=== PATIENT | male | born 1965 | race Caucasian/White ===

== ENCOUNTER 2021-11-15 20:22 | Inpatient (IN) | payer OTHER, MEDICAID, SELFPAY ==
[~2021-11-15] VITALS: Ht 175.3 cm; Wt 76.7 kg
--- NOTE | 2021-11-15 20:34 | NUR ---
PT HELD IN AMBULANCE.
[2021-11-15 20:35] VITALS: BP 139/79
--- NOTE | 2021-11-15 21:28 | NUR ---
PT TAKEN TO BED #13
--- NOTE | 2021-11-15 21:47 | NUR ---
56 Y/O MALE BIBA FROM [facility] [place] ([facility]). C/O COUGH AND FEVER. PATIENT PRESENTS TO ED WITH MILD AGITATION AND MILD FEVER. PER EMS, FACILITY STATES WHILE TAKING VITALS AT FACILITY THEY NOTIVCED THAT THE PT HAD A COUGH AND FEVER OF 100.4F. FACILITY N/V/D; SKIN IS PINK/WARM/DRY; AAOXO (WHICH IS NORMAL FOR PT DUE TO COGNITIVE IMPAIREMENT); PT IS NON AMBULATORY; LUNGS CLEAR BL; HR EVEN AND REGULAR; VSS; PATIENT POSITIONED FOR COMFORT; HOB ELEVATED; BEDRAILS UP X2 AND SEIZURE PADS PLACED; BED DOWN. ER MD MADE AWARE OF PT STATUS. hX: DYSPHAFGIA, G-TUBE, GERD, CEREBRAL PALSY, PROFOUND ID, EPILEPSY, UTI, PARKINSONS, DVT, DEMENTIA, SCHIZOPHRENIA NKA
--- NOTE | 2021-11-15 21:47 | NUR ---
PER EMS, [facility] TESTED PT FOR COVID11/12/21 AND RESULTS WERE NEGATIVE
--- NOTE | 2021-11-15 22:35 | NUR ---
LABS AT BEDSIDE
--- NOTE | 2021-11-15 22:38 | NUR ---
PT TAKEN TO XRAY
--- NOTE | 2021-11-15 22:39 | NUR ---
Tory ellis in [facility], [place] - 11/15/21 at 2247 by [email or web address] LABS AT BEDSIDE
--- NOTE | 2021-11-15 22:46 | NUR ---
PT RETURNED FROM XRAY
--- NOTE | 2021-11-15 23:00 | NUR ---
BELKIS/ROBERT COLLECTED AND WALKED TO LAB.
--- NOTE | 2021-11-15 23:36 | NUR ---
SPOKE WITH DR BULLOCK CONCERNING PT ADMIT ORDERS.
[2021-11-15 23:40] LABS: BASOPHILS % (AUTO) 0.2 % (0.0-2.0); EOSINOPHILS % (AUTO) 0.2 % (0.0-4.0); HEMATOCRIT 38.8 % (36-52); LYMPHOCYTES % (AUTO) 20.9 % (20.5-51.1); MEAN CORPUSCULAR HEMOGLOBIN 31 pg (27-31); MEAN CORPUSCULAR HGB CONC 33 g/dL (33-37); MEAN CORPUSCULAR VOLUME 91.1 fL (80-94); MONOCYTES # (AUTO) 1.3 K/uL (0.8-1.0); MONOCYTES % (AUTO) 9.2 % (1.7-9.3); NEUTROPHILS # (AUTO) 10.1 K/uL (1.8-7.7); NEUTROPHILS % (AUTO) 69.5 % (42.2-75.2); PLATELET COUNT (AUTO) 380 K/uL (140-450); RED BLOOD CELL COUNT(AUTO) 4.26 MIL/uL (4.20-6.10); RED CELL DISTRIBUTION WIDTH 15.4 % (11.6-13.7); WHITE BLOOD COUNT (AUTO) 14.5 K/uL (4.8-10.8)
[2021-11-16] LABS: ALBUMIN 2.6 g/dL (3.4-5.0); ANION GAP 14.5 (8-16); CARBON DIOXIDE 28.1 mmol/L (21-32); CREATININE 0.5 mg/dL (0.6-1.3); POTASSIUM 4.6 mmol/L (3.5-5.1); TOTAL BILIRUBIN 0.2 mg/dL (0.0-1.0)
--- NOTE | 2021-11-16 00:01 | NUR ---
SEIZURE PRECAUTIONS INITIATED
[2021-11-16] MEDS ORDERED: LACTATED RINGERS 1,000 ML IV ONE (00:35)
[2021-11-16] MEDS ORDERED: VANCOMYCIN 1,000 MG in DEXTROSE 5% 250 ML IV ONE (00:35)
[2021-11-16] MEDS ORDERED: CEFEPIME 1,000 MG in DEXTROSE 5% 50 ML IV ONE (00:35)
[2021-11-16] MEDS ORDERED: DEXT 5% / NACL 0.45% 1,000 ML IV ONE (00:40)
[2021-11-16] MEDS ORDERED: CEFEPIME 1,000 MG VIAL ONE ×2 (01:33→22:04)
[2021-11-16] MEDS ORDERED: VANCOMYCIN 1,000 MG VIAL ONE ×3 (02:19→23:20)
[2021-11-16] MEDS ORDERED: POLY17PD72 GT (03:29)
[2021-11-16] MEDS ORDERED: MULT-2112 PO (03:29)
[2021-11-16] MEDS ORDERED: LISI-486 GT (03:29)
[2021-11-16] MEDS ORDERED: OMEP20EC11 GT (03:29)
[2021-11-16] MEDS ORDERED: OXCA300T GT (03:29)
[2021-11-16] MEDS ORDERED: ONDA4TAB GT (03:29)
[2021-11-16] MEDS ORDERED: APIX5TAB GT (03:29)
[2021-11-16] MEDS ORDERED: KETO120S5 TP (03:29)
[2021-11-16] MEDS ORDERED: ASCO500T95 GT (03:29)
--- NOTE | 2021-11-16 03:50 | NUR ---
# 15 FR Urinary catheter inserted utilizing sterile technique. Immediate return of 80 ml CLOUDY YELLOW urine noted. Urine sample collected and sent to lab. Pt tolerated procedure WELL.
[2021-11-16 04:05] LABS: BILIRUBIN,URINE NEGATIVE (NEGATIVE); BLOOD, URINE 3+ (NEGATIVE); COLOR,URINE YELLOW (YELLOW); LEUKOCYTE ESTERASE ,URINE 2+ (NEGATIVE); NITRITE, URINE NEGATIVE (NEGATIVE); UGLUCOSE NEGATIVE (NEGATIVE)
[2021-11-16 04:17] LABS: APPEARANCE,URINE HAZY (CLEAR)
[2021-11-16 04:19] LABS: RBC,URINE >100 /HPF (0-5); WBC,URINE 20-60 /HPF (0-5)
--- NOTE | 2021-11-16 04:56 | NUR ---
TALKED TO DR STELLA BULLOCK ABOUT HIS SUSPENSION AND HE SAID THAT HE SHOULD NOT BE SUSPENDED BUT TO TRANSFER ADMISSION ORDERS TO AMADA BULLOCK IN THE MEANTIME IF IT COULD NOT BE SORTED OUT.
--- NOTE | 2021-11-16 06:57 | NUR ---
PATIENT HAS BEEN SCREENED AND CATEGORIZED HIGH NUTRITION RISK. PATIENT WILL BE SEEN WITHIN 1-2 DAYS OF ADMISSION. 11/17/21-11/18/21 ANNA TRACEY MS, RDN
--- NOTE | 2021-11-16 07:32 | NUR ---
REPORT RECEIVED FROM JOHNNY MICHAELS FOR CONTINUITY OF CARE. A&OX0. ON 3L NASAL CANNUAL. GTUBE NOTED. SEIZURE PRECAUTIONS IN PLACE. IV SITE LT FOOT 22G, INFUSING D5% 0.45% AT 100ML/HR. SKIN WARM AND DRY, INTACT. SAFETY PRECAUTIONS IN PLACE. WILL CONTINUE TO MONITOR.
--- NOTE | 2021-11-16 07:32 | NUR ---
REPORT GIVEN TO NATALIO MICHAELS.
--- NOTE | 2021-11-16 08:00 | NUR ---
novel swabbed at this time
[2021-11-16] MEDS ORDERED: ALBUTEROL 0.083% 2.5 MG/3 ML NEBU INH PRN (08:20)
[2021-11-16] MEDS ORDERED: DEXT 5% / NACL 0.45% 1,000 ML IV SCH (08:20)
[2021-11-16] MEDS ORDERED: ACETAMINOPHEN 325 MG TAB GT PRN (08:20)
[2021-11-16] MEDS ORDERED: LORazepam 2 MG/ML VIAL IVP PRN (08:20)
[2021-11-16] MEDS ORDERED: ONDANSETRON 4 MG/2 ML VIAL IVP PRN (08:20)
[2021-11-16] MEDS ORDERED: PANTOPRAZOLE 40 MG TABEC PO SCH (09:00)
[2021-11-16] MEDS: OXcarbazepine 150 MG TAB GT SCH ×2 (09:49→23:04)
[2021-11-16] MEDS: ASCORBIC ACID 500 MG TAB GT SCH (09:50)
[2021-11-16] MEDS: lisinopriL 10 MG TAB GT SCH (09:50)
[2021-11-16] MEDS: APIXABAN 2.5 MG TAB GT SCH ×2 (09:51→23:00)
[2021-11-16] MEDS: MULTIVITAMIN 1 TAB PO SCH (09:52)
[2021-11-16] MEDS ORDERED: CRUSHER, PILL MC ONE ×2 (09:54→22:18)
[2021-11-16] MEDS ORDERED: VANCOMYCIN PER PHARMACY MC PRN (10:55)
--- NOTE | 2021-11-16 10:59 | NUR ---
RECEIVED CALL FROM ROHAN MANCERA, PT'S SENIOR BUSINESS OBJECTS DEVELOPER. UPDATED ON PT STATUS. ALL CONCERNS ANSWERED AT THIS TIME.
[2021-11-16] MEDS: VANCOMYCIN 1,000 MG in DEXTROSE 5% 250 ML IV SCH ×2 (11:27→23:25)
--- NOTE | 2021-11-16 12:15 | NUR ---
PT ON 3 L NASAL CANNULA. O2 SATURATION 97%. RESPIRATIONS EVEN AND UNLABORED. CHEST RISE IS SYMMETRICAL. WILL CONTINUE TO MONITOR.
--- NOTE | 2021-11-16 20:21 | NUR ---
Spoke with MD Fair about patient status. MD at bedside for further examination of patient.
--- NOTE | 2021-11-16 21:42 | NUR ---
patient placed on 6L NC patient slightly agitated and pale. patient going up to 88%. will continue to monitor patient
--- NOTE | 2021-11-16 21:51 | NUR ---
called RT as patient desaturation at 55%, patient turning pale and slightly cyanotic. Addendum: 11/16/21 at 2152 by [email or web address] RT at bedside for evaluation
[2021-11-16] MEDS: CEFEPIME 1,000 MG in DEXTROSE 5% 50 ML IV SCH (22:08)
--- NOTE | 2021-11-16 22:40 | NUR ---
RT at bedside, patient desaturating down to low 70s and patient turning pale and cyanotic
[2021-11-16] MEDS: HYDROcodone/APAP 5/325 MG 1 TAB TAB GT PRN (22:56)
--- NOTE | 2021-11-17 00:30 | NUR ---
changed gtube dressing and changed patient to NC 5L tolerating well.
--- NOTE | 2021-11-17 01:00 | NUR ---
provided patient pericare, changed sheets, and provided agustin pads. Boosted and repositioned to the right side. patient tolerated well. Addendum: 11/17/21 at 0101 by [email or web address] patient had BM, soft, medium amount.
[2021-11-17] MEDS ORDERED: VANCOMYCIN 1,000 MG VIAL ONE (04:58)
[2021-11-17] MEDS: VANCOMYCIN 1,000 MG in DEXTROSE 5% 250 ML IV SCH ×3 (05:15→21:30)
[2021-11-17] MEDS: HYDROcodone/APAP 5/325 MG 1 TAB TAB GT PRN (05:19)
--- NOTE | 2021-11-17 05:43 | NUR ---
provided patient pericare, changed sheets, and provided agustin pads. Boosted and repositioned to the left side. patient had a small soft BM- yellow in color. patient tolerated well.
--- NOTE | 2021-11-17 05:44 | NUR ---
noted some redness on the buttocks and hips. no open wounds noted.
--- NOTE | 2021-11-17 07:30 | NUR ---
Pt report given to Colton MICHAELS. Transfer of care at this time.
--- NOTE | 2021-11-17 07:30 | NUR ---
REPORT RECEIVED FROM TANIA RN FOR CONTINUITY OF CARE. PT IS A&OX0. IV SITE LT FOOT 22G, INTACT, PATENT, GOOD BLOOD RETURN. GTUBE NOTED. SKIN INTACT, WARM AND DRY. SAFETY PRECAUTIONS IN PLACE. WILL CONTINUE TO MONITOR.
[2021-11-17] MEDS: LANSOPRAZOLE 30 MG CAPDR GT SCH (07:40)
--- NOTE | 2021-11-17 08:34 | NUR ---
Patient will be admitted to care of DR BULLOCK. Admited to TELEMETRY. Will go to room 113 B. Belongings list completed. Report to TREVIN MICHAELS.
[2021-11-17 09:00] VITALS: BP 124/60
[2021-11-17] MEDS: lisinopriL 10 MG TAB GT SCH (09:00)
[2021-11-17] MEDS: APIXABAN 2.5 MG TAB GT SCH ×2 (09:00→21:00)
[2021-11-17] MEDS: ASCORBIC ACID 500 MG TAB GT SCH (09:00)
[2021-11-17] MEDS: MULTIVITAMIN 1 TAB PO SCH (09:00)
[2021-11-17] MEDS: OXcarbazepine 150 MG TAB GT SCH ×2 (09:00→21:00)
[2021-11-17] MEDS: POLYETHYLENE GLYCOL 17 GM/PKT GT SCH (09:00)
[2021-11-17] MEDS: CEFEPIME 1,000 MG in DEXTROSE 5% 50 ML IV SCH ×2 (09:00→21:00)
--- NOTE | 2021-11-17 09:00 | NUR ---
RECEIVED PT FROM ED. PT IS STABLE. ST HEART RATE. NO RECENTLABS. AWAITING LAB DRAW.
[2021-11-17 11:58] LABS: BASOPHILS % (AUTO) 0.2 % (0.0-2.0); HEMATOCRIT 36.9 % (36-52); LYMPHOCYTES # (AUTO) 2.5 K/uL (2.0-11.5); LYMPHOCYTES % (AUTO) 21.4 % (20.5-51.1); MEAN CORPUSCULAR HEMOGLOBIN 30 pg (27-31); MEAN CORPUSCULAR HGB CONC 33 g/dL (33-37); MEAN CORPUSCULAR VOLUME 92.4 fL (80-94); MONOCYTES # (AUTO) 0.9 K/uL (0.8-1.0); MONOCYTES % (AUTO) 7.6 % (1.7-9.3); NEUTROPHILS # (AUTO) 8.2 K/uL (1.8-7.7); NEUTROPHILS % (AUTO) 70.8 % (42.2-75.2); PLATELET COUNT (AUTO) 361 K/uL (140-450); RED BLOOD CELL COUNT(AUTO) 3.99 MIL/uL (4.20-6.10); RED CELL DISTRIBUTION WIDTH 15.7 % (11.6-13.7); WHITE BLOOD COUNT (AUTO) 11.6 K/uL (4.8-10.8)
[2021-11-17 12:00] VITALS: BP 120/53
--- NOTE | 2021-11-17 12:00 | NUR ---
NO REACTION TO CEFEPIME AND VANCO. STARTED JEVITY AT 10CC TO 40CC EVENTUALLY. H20 200CC EVERY 4HOURS. PT IS STABLE.
[2021-11-17 12:11] LABS: ANION GAP 15.4 (8-16); CREATININE 1.3 mg/dL (0.6-1.3); POTASSIUM 4.4 mmol/L (3.5-5.1)
[2021-11-17 16:00] VITALS: BP 124/59
--- NOTE | 2021-11-17 16:00 | NUR ---
PT IS BREATHING EVEN AND UNLABORED. PT IS ON 3L NC AND SATING AROUND 95%. PT IV IS PATENT AND INTACT. PT IS STABLE.
--- NOTE | 2021-11-17 19:30 | NUR ---
ENDORSED PT TO AUDIO PRODUCTION INSTRUCTOR NURSE FOR CONTINUITY OF CARE.
--- NOTE | 2021-11-17 19:32 | NUR ---
RECEIVED REPORT FROM DAY SHIFT NURSE FOR CONTINUITY OF CARE.
--- NOTE | 2021-11-17 21:00 | NUR ---
HS MEDS GIVEN . TOLERATED WELL. IV R FOOT 22G PATENT. INFUSING IV ABXS. G-TUBE FEEDING JEVITY 1.2 @40CC/HR WITH 200CC [id number] Q 4HRS. SACRAL REDNESS. TURNED AND REPOSITIONED Q 2 HRS. ALL SAFETY MEASURES IN PLACE. CONTINUE TO OBSERVE.
--- NOTE | 2021-11-17 21:44 | NUR ---
PT PRESENTS LAYING IN BED WITH NO SIGNS OF RESPIRATORY DISTRESS SATING 96% ON 3 LPM NC. WILL CONTINUE TO MONITOR.
[2021-11-18] MEDS: VANCOMYCIN 1,000 MG in DEXTROSE 5% 250 ML IV SCH ×3 (03:31→22:01)
[2021-11-18] MEDS: LANSOPRAZOLE 30 MG CAPDR GT SCH (06:04)
[2021-11-18 07:00] VITALS: BP 124/60
[2021-11-18 07:59] LABS: BASOPHILS % (AUTO) 0.2 % (0.0-2.0); EOSINOPHILS # (AUTO) 0.1 K/uL (0-0.4); EOSINOPHILS % (AUTO) 0.8 % (0.0-4.0); HEMATOCRIT 35.7 % (36-52); HEMOGLOBIN 11.8 g/dL (12.0-18.0); LYMPHOCYTES % (AUTO) 14.4 % (20.5-51.1); MEAN CORPUSCULAR HEMOGLOBIN 30 pg (27-31); MEAN CORPUSCULAR HGB CONC 33 g/dL (33-37); MEAN CORPUSCULAR VOLUME 91.2 fL (80-94); MONOCYTES # (AUTO) 0.7 K/uL (0.8-1.0); MONOCYTES % (AUTO) 5.4 % (1.7-9.3); NEUTROPHILS # (AUTO) 10.8 K/uL (1.8-7.7); NEUTROPHILS % (AUTO) 79.2 % (42.2-75.2); PLATELET COUNT (AUTO) 305 K/uL (140-450); RED BLOOD CELL COUNT(AUTO) 3.92 MIL/uL (4.20-6.10); RED CELL DISTRIBUTION WIDTH 15.7 % (11.6-13.7)
[2021-11-18 08:00] LABS: WHITE BLOOD COUNT (AUTO) 13.7 K/uL (4.8-10.8)
[2021-11-18 08:05] LABS: ALBUMIN 2.1 g/dL (3.4-5.0); ANION GAP 11.4 (8-16); CARBON DIOXIDE 29.3 mmol/L (21-32); CREATININE 0.7 mg/dL (0.6-1.3); POTASSIUM 3.7 mmol/L (3.5-5.1); TOTAL BILIRUBIN 0.2 mg/dL (0.0-1.0)
[2021-11-18] MEDS: POLYETHYLENE GLYCOL 17 GM/PKT GT SCH (08:31)
[2021-11-18] MEDS: MULTIVITAMIN 1 TAB PO SCH (08:32)
[2021-11-18] MEDS: lisinopriL 10 MG TAB GT SCH (08:32)
[2021-11-18] MEDS: ASCORBIC ACID 500 MG TAB GT SCH (08:32)
[2021-11-18] MEDS: OXcarbazepine 150 MG TAB GT SCH ×2 (08:33→22:02)
[2021-11-18] MEDS: CEFEPIME 1,000 MG in DEXTROSE 5% 50 ML IV SCH ×2 (08:33→22:04)
[2021-11-18] MEDS: APIXABAN 2.5 MG TAB GT SCH ×2 (08:35→22:03)
--- NOTE | 2021-11-18 09:50 | NUR ---
RECEIVED REPORT FROM ROHAN MICHAELS. PT STABLE
--- NOTE | 2021-11-18 10:22 | NUR ---
PT. WITH LOW ASCENCION SCALE AT HIGH RISK, ADMITTED WITH SACRALCOCCYX BLANCHABLE REDNESS, 3X2 CM SKIN INTACT. CONTINUE TO FOLLOW PRESSURE INJURY PREVENTION INTERVENTIONS. -APPLY HYDRAGUARD TO SACRALCOCCYX BID AND PRN IF SOILING. -TURN AND REPOSITION PATIENT Q 2H -ASSESS AND MONITOR SKIN CONDITION DURING POSITION CHANGE -OFFLOAD BILATERAL HEELS BY PLACING PILLOWS UNDER CALVES AT ALL TIMES, UNLESS OTHERWISE CONTRAINDICATED -PRESSURE REDISTRIBUTION SURFACE AND OFFLOADING SACRALCOCCYX -KEEP SKIN CLEAN AND DRY AT ALL TIMES. PLEASE NOTIFIED WOUND CARE NURSE FOR ANY CHANGE OF SKIN CONDITION
[2021-11-18 12:00] VITALS: BP 92/55
[2021-11-18] MEDS ORDERED: NACL 0.9% 500 ML IV SCH (12:40)
[2021-11-18] MEDS ORDERED: POTASSIUM CHLORIDE 20% 40 MEQ/15 ML UDC GT SCH (13:00)
[2021-11-18] MEDS: HYDRAGUARD CREAM TP SCH (13:19)
--- NOTE | 2021-11-18 13:45 | NUR ---
PT RESTING IN BED. NO S/S OF DISTRESS. BREATHING SYMMETRICAL. CALL LIGHT IN REACH. ALL SAFETY MEASURES IN PLACE
[2021-11-18 16:00] VITALS: BP 91/60
--- NOTE | 2021-11-18 17:06 | NUR ---
11/18/21 RD INITIAL ASSESSMENT COMPLETED PLEASE REFER TO NUTRITION ASSESSMENT UNDER CARE ACTIVITY FOR ESTIMATED NUTRITIONAL NEEDS. 1. RECOMMEND VITAL AF 1.2 WITH A GOAL RATE OF 60 ML/HR -WATER FLUSH: 200 ML Q4H -START AT 10 ML/HR AND INCREASE BY 10 ML Q4H TOLERATED -WILL PROVIDE 1728 KCAL AND 108 GM PROTEIN, MEETING 80% KCAL AND 100% PROTEIN NEEDS 2. RD TO FOLLOW-UP 2-3 DAYS, HIGH RISK ROJAS MCCORMICK RD
--- NOTE | 2021-11-18 17:26 | NUR ---
PT TUBE FEEDING WAS CHANGED. DIETARY TO BRING FEEDING, WILL SHOW CLAY PRESS OPERATOR NURSE HOW TO TITRATE FEEDING SET BY GRAVITY. ALL SAFETY MEASURES IN PLACE. HOB KEPT ELEVATED AT ALL TIMES.
--- NOTE | 2021-11-18 19:30 | NUR ---
RECEIVED BEDSIDE REPORT FROM DAY SHIFT RN . PT IS SLEEPING IN BED. NC 3L. PT IS NOT IN ANY DISTRESS. BED AT THE LOWEST POSITION. HEAD OF BED RAISED. WILL CONTINUE TO MONITOR THE PT.
[2021-11-18 20:00] VITALS: BP 87/57
[2021-11-19] VITALS: BP 95/54
[2021-11-19] MEDS: HYDRAGUARD CREAM TP SCH ×2 (01:32→13:26)
--- NOTE | 2021-11-19 02:50 | NUR ---
PT IS SLEEPING IN BED. PT IS NOT IN ANY DISTRESS. BREATHING RHYTHMIC AND SYMMETRICAL. FEEDING RUNNING MD ORDER. BED AT THE LOWEST POSITION. ALL SAFETY MEASURES TAKEN. WILL CONTINUE TO MONITOR THE PT.
[2021-11-19 04:00] VITALS: BP 136/82
[2021-11-19] MEDS: VANCOMYCIN 1,000 MG in DEXTROSE 5% 250 ML IV SCH (04:03)
[2021-11-19] MEDS: LANSOPRAZOLE 30 MG CAPDR GT SCH (05:55)
--- NOTE | 2021-11-19 07:20 | NUR ---
ENDORSED PT TO DAY SHIFT RN FOR CONTINUITY OF CARE. PT IS STABLE.
--- NOTE | 2021-11-19 07:30 | NUR ---
RECEIVED BEDSIDE REPORT FROM DAY RN BONE MARROW TRANSPLANT RN . PT IS SLEEPING IN BED. NC 3L. PT IS NOT IN ANY DISTRESS. GT IN PLACE WITH FEEDING, TOLERATED WELL, R FOOT 22G@ KVO. BED AT THE LOWEST POSITION. HEAD OF BED RAISED. WILL CONTINUE TO MONITOR THE PT. INITIAL ASSESSMENT DONE, ALL SAFETY PRECAUTION MET, CALL LIGHT WITHIN REACH.
[2021-11-19 07:37] LABS: BASOPHILS % (AUTO) 0.2 % (0.0-2.0); EOSINOPHILS # (AUTO) 0.1 K/uL (0-0.4); EOSINOPHILS % (AUTO) 0.6 % (0.0-4.0); HEMATOCRIT 36.2 % (36-52); HEMOGLOBIN 11.8 g/dL (12.0-18.0); LYMPHOCYTES # (AUTO) 1.5 K/uL (2.0-11.5); LYMPHOCYTES % (AUTO) 9.1 % (20.5-51.1); MEAN CORPUSCULAR HEMOGLOBIN 30 pg (27-31); MEAN CORPUSCULAR HGB CONC 33 g/dL (33-37); MEAN CORPUSCULAR VOLUME 91.6 fL (80-94); MONOCYTES # (AUTO) 0.9 K/uL (0.8-1.0); MONOCYTES % (AUTO) 5.1 % (1.7-9.3); NEUTROPHILS # (AUTO) 14.5 K/uL (1.8-7.7); PLATELET COUNT (AUTO) 316 K/uL (140-450); RED BLOOD CELL COUNT(AUTO) 3.95 MIL/uL (4.20-6.10); RED CELL DISTRIBUTION WIDTH 15.2 % (11.6-13.7); WHITE BLOOD COUNT (AUTO) 17.1 K/uL (4.8-10.8)
[2021-11-19 08:00] VITALS: BP 111/66
[2021-11-19] MEDS: APIXABAN 2.5 MG TAB GT SCH ×2 (10:00→21:36)
[2021-11-19] MEDS: POLYETHYLENE GLYCOL 17 GM/PKT GT SCH (10:00)
[2021-11-19] MEDS: LINEZOLID 600MG PREMIX 300 ML IV SCH ×2 (10:00→21:34)
[2021-11-19] MEDS: lisinopriL 10 MG TAB GT SCH (10:01)
[2021-11-19] MEDS: OXcarbazepine 150 MG TAB GT SCH ×2 (10:01→21:35)
[2021-11-19] MEDS: MULTIVITAMIN 1 TAB PO SCH (10:01)
[2021-11-19] MEDS: ASCORBIC ACID 500 MG TAB GT SCH (10:01)
[2021-11-19] MEDS: CEFEPIME 1,000 MG in DEXTROSE 5% 50 ML IV SCH ×2 (10:03→21:34)
--- NOTE | 2021-11-19 11:06 | NUR ---
PT POSITIVE FOR MRSA NARES, BACTROBAN PER PROTOCOL ORDERED
[2021-11-19 11:29] LABS: ANION GAP 9.5 (8-16); CARBON DIOXIDE 29.7 mmol/L (21-32); CREATININE 0.5 mg/dL (0.6-1.3); POTASSIUM 4.2 mmol/L (3.5-5.1)
[2021-11-19 12:00] VITALS: BP 131/52
--- NOTE | 2021-11-19 12:50 | NUR ---
DC PLANNING: ALE SPOKE WITH GENESIS MANCERA, TECHNICAL AID FOR [facility]. THE PATIENT HAS BEEN AT THEIR FACILITY FOR A WEEK AN EMERGENCY PLACEMENT. HE WAS PREVIOUSLY AMBULATORY, NOW WC BOUND BUT P.T. IS WORKING WITH HIM AT THE [facility]. HE IS VERBAL, AND HAS A PEG. CM ENDORSED THAT THE PATIENT HAS POSITIVE URINE CULTURES OF VRE AND IS ON IV ABX AND MAY NEED SNF PLACEMENT FOR CONTINUATION. PATIENT IS ON O2 2L NC, CM WILL FOLLOW FOR NEEDS. Addendum: 11/21/21 at 0905 by Delfina Pereira CM DC PLANNING: ORDER RECEIVED FOR SNF PLACEMENT FOR IV ABX AND O2. ALE SPOKE WITH GENESIS MANCERA, TECHNICAL AID FOR [facility], PATIENT IS [facility] MANAGED BUT THERE IS NO PREFERENCE FOR SNF. CM WILL FAX TO LOCAL FACILITIES AND WILL FOLLOW FOR NEEDS. Addendum: 11/21/21 at 1427 by Delfina Pereira CM DC PLANNING: SNF REFERRAL FAXED TO [facility], [facility] AND [facility]. CM WILL FOLLOW. Addendum: 11/22/21 at 1548 by Delfina Pereira CM DC PLANNING: NO SNF ACCEPTANCE, [facility] CM WILL FOLLOW. Addendum: 11/22/21 at 1645 by Delfina Pereira CM DC PLANNING: [facility] UNABLE TO ACCEPT. CM WILL FOLLOW. Addendum: 11/25/21 at 1755 by Rufina Barrios CM DC Planning: Oxygen order faxed to [facility] ([phone] F.[phone]). Addendum: 11/27/21 at 1250 by Delfina Pereira CM DC PLANNING: SPOKE WITH DR BULLOCK, PATIENT TO BE REFERRED TO [facility] BECAUSE OF RISING WBC'S AND POTENTIAL NEED FOR IV ABX. PATIENT IS [place] AND CANNOT DC THERE ON ABX. REFERRAL FAXED TO [facility], CM WILL FOLLOW. Addendum: 11/28/21 at 1408 by Delfina Pereira CM DC PLANNING: PATIENT ACCEPTED TO [facility], ROOM 19B UNDER DR BULLOCK/ [place] TO SET UP TRANSPORT WITH [facility], F/U CALL TO ASK WHAT TIME TRANSPORT HAS BEEN ARRANGED, CM WILL FOLLOW FOR DC. Addendum: 11/28/21 at 1554 by Delfina Pereira DC PLANNING: TRANSPORT ARRANGED WITH [facility] FOR 1800, PHONE FOR [facility] IS [phone], WILL NEED TO F/U IF THEY DON'T COME AT 1800. NUMBER TO CALL REPORT IS [phone]. PATIENTS NURSE FARHANA DO, CM WILL FOLLOW.
[2021-11-19] MEDS: MUPIROCIN CA NASAL 2% 1GM TUBE NS SCH (13:26)
[2021-11-19] MEDS: CHLORHEXADINE GLUC 2% CLOTH TP SCH (13:26)
[2021-11-19 16:00] VITALS: BP 148/89
--- NOTE | 2021-11-19 17:26 | NUR ---
DR BULLOCK AT BEDSIDE PER DR CASILLAS TO DOWNGRADE TO MS.
--- NOTE | 2021-11-19 19:30 | NUR ---
ENDORSED PT TO REAL ESTATE LOAN OFFICER NURSE FOR CONTINUOUS OF CARE.
--- NOTE | 2021-11-19 19:45 | NUR ---
RECEIVED PT FROM DAY SHIFT RN FOR CONTINUITY OF CARE. PT IS SLEEPING IN BED COMFORTABLY. PT IS ON NC 3L. RIGHT FOOT 22 GAUGE. FEEDING RUNNING MD ORDER. PT IS NOT IN ANY DISTRESS. BED AT THE LOWEST POSITION. ALL SAFETY MEASURES TAKEN. WILL CONTINUE TO MONITOR THE PT.
[2021-11-19 20:00] VITALS: BP 111/51
--- NOTE | 2021-11-19 21:45 | NUR ---
ALL DUE MEDS GIVEN. NO ADVERSE REACTION NOTED. WILL CONTINUE TO OBSERVE PT.
--- NOTE | 2021-11-20 00:53 | NUR ---
PT IS AWAKE LAYING IN BED COMFORTABLY. PT IS NOT IN ANY DISTRESS. BREATHING RHYTHMIC AND SYMMETRICAL. BED AT THE LOWEST POSITION. HEAD OF BED RAISED. WILL CONTINUE TO MONITOR THE PT.
[2021-11-20] MEDS: HYDRAGUARD CREAM TP SCH ×2 (01:06→15:16)
[2021-11-20 04:00] VITALS: BP 103/42
[2021-11-20] MEDS: LANSOPRAZOLE 30 MG CAPDR GT SCH (05:52)
[2021-11-20 07:27] LABS: ANION GAP 8.6 (8-16); CARBON DIOXIDE 30.5 mmol/L (21-32); CREATININE 0.5 mg/dL (0.6-1.3); POTASSIUM 4.1 mmol/L (3.5-5.1); TOTAL BILIRUBIN 0.2 mg/dL (0.0-1.0)
[2021-11-20 07:28] LABS: BASOPHILS % (AUTO) 0.1 % (0.0-2.0); EOSINOPHILS # (AUTO) 0.1 K/uL (0-0.4); HEMATOCRIT 33.4 % (36-52); HEMOGLOBIN 11.3 g/dL (12.0-18.0); LYMPHOCYTES # (AUTO) 1.6 K/uL (2.0-11.5); LYMPHOCYTES % (AUTO) 12.6 % (20.5-51.1); MEAN CORPUSCULAR HEMOGLOBIN 31 pg (27-31); MEAN CORPUSCULAR HGB CONC 34 g/dL (33-37); MEAN CORPUSCULAR VOLUME 90.9 fL (80-94); MONOCYTES # (AUTO) 0.8 K/uL (0.8-1.0); NEUTROPHILS # (AUTO) 10.4 K/uL (1.8-7.7); NEUTROPHILS % (AUTO) 80.3 % (42.2-75.2); PLATELET COUNT (AUTO) 298 K/uL (140-450); RED BLOOD CELL COUNT(AUTO) 3.68 MIL/uL (4.20-6.10); WHITE BLOOD COUNT (AUTO) 12.9 K/uL (4.8-10.8)
--- NOTE | 2021-11-20 07:30 | NUR ---
ENDORSED PT TO DAY SHIFT RN FOR CONTINUITY OF CARE. PT IS STABLE.
--- NOTE | 2021-11-20 07:45 | NUR ---
RECEIVED REPORT FROM PM SHIFT RN ONDINA FOR CONTINUITY OF CARE. PT. STABLE ON NC 3LPM. NOT IN DISTRESS NOTRD. SAFETY MEASURES IN PLACED. WILL CONTINUE TO MONITOR THE PT.
[2021-11-20 08:00] VITALS: BP 92/67
[2021-11-20] MEDS: ASCORBIC ACID 500 MG TAB GT SCH (08:33)
[2021-11-20] MEDS: lisinopriL 5 MG TAB GT SCH (08:34)
[2021-11-20] MEDS: OXcarbazepine 150 MG TAB GT SCH ×2 (08:34→21:54)
[2021-11-20] MEDS: MULTIVITAMIN 1 TAB PO SCH (08:35)
[2021-11-20] MEDS: APIXABAN 2.5 MG TAB GT SCH ×2 (08:38→21:53)
[2021-11-20] MEDS: LINEZOLID 600MG PREMIX 300 ML IV SCH ×2 (08:40→22:14)
[2021-11-20] MEDS: POLYETHYLENE GLYCOL 17 GM/PKT GT SCH (08:40)
--- NOTE | 2021-11-20 10:30 | NUR ---
PT. STABLE, LYING IN THE BED, NOT IN DISTRESS ON NC O2 3LPM. ALL . MEDICATION WAS ADMINISTRED VIA FEEDING TUBE. TOLERATED WELL. NO RESIDUAL NOTED. NO N/V OBSERVED, ALL SAFETY MEASURES IN PLACED. WILL CONTINUE TO MONITOR THE PT.
[2021-11-20] MEDS: CEFEPIME 1,000 MG in DEXTROSE 5% 50 ML IV SCH ×2 (10:45→21:39)
--- NOTE | 2021-11-20 11:35 | NUR ---
11/20/21 RD FOLLOW UP COMPLETED PLEASE REFER TO NUTRITION ASSESSMENT UNDER CARE ACTIVITY FOR ESTIMATED NUTRITIONAL NEEDS. 1. CONTINUE VITAL AF 1.2 @ 60 ML/HR TOLERATED -WATER FLUSH: 200 ML Q4H OR PER MD -PROVIDES 1728 KCAL AND 108 GM PROTEIN, MEETING 80% KCAL AND 100% PROTEIN NEEDS 2. RD TO FOLLOW-UP 3-5 DAYS, MODERATE RISK (DOWNGRADED D/T PT TOLERATING TF WELL) ROJAS MCCORMICK RD
[2021-11-20] MEDS: CHLORHEXADINE GLUC 2% CLOTH TP SCH (13:00)
--- NOTE | 2021-11-20 13:30 | NUR ---
PT. COMFORTABLY SLEEPING IN THE BED. WITH NOS/S OF DISTRESS NOTED. SAFETY MEASURES IN PLACE. WILL CONTINUE TO MONITOR THE PT.
[2021-11-20] MEDS: MUPIROCIN CA NASAL 2% 1GM TUBE NS SCH (15:16)
--- NOTE | 2021-11-20 16:00 | NUR ---
MADE ROUND TO THE PT'S ROOM . PT. SLEEPING AT THIS TIME,. NO ACUTE DISTRESS NOTED. ALL SAFETY MEASURES IN PLACED. WILL CONTINUE TO MONITOR THE PT.
--- NOTE | 2021-11-20 16:29 | NUR ---
PT. WITH LOW ASCENCION SCALE AT HIGH RISK, CONTINUE TO FOLLOW PRESSURE INJURY PREVENTION INTERVENTIONS. -APPLY HYDRAGUARD TO SACRALCOCCYX BID AND PRN IF SOILING -TURNING AND/OR REPOSITIONING EVERY 1-2 HRS. -PROTECT/FLOAT HEELS -BY PLACING PILLOWS UNDER CALVES AT ALL TIMES, UNLESS OTHERWISE CONTRAINDICATE. APPLY HEEL PROTECTORS -MANAGE FRICTION AND SHEAR BY USING LIFT SHEET TO REPOSITION THE PATIENT. -MANAGE MOISTURE, FRICTION, AND SHEAR. KEEP SKIN DRY AND PROTECT FROM FRICTION. -INSPECT UNDER AND AROUND MEDICAL DEVICES. -ASSESS AND MONITOR SKIN CONDITION DURING POSITION CHANGE -PRESSURE REDISTRIBUTION SURFACE AND OFFLOADING SACRALCOCCYX -HOB 30 DEGREES, TOLERATED -PLEASE FOLLOW RD RECOMMENDATIONS
--- NOTE | 2021-11-20 19:25 | NUR ---
REPORT GIVEN TO PM SHIFT NURSE FOR CONTINUITY OF CARE. PT. STABLE.
--- NOTE | 2021-11-20 19:26 | NUR ---
RECEIVED PATIENT REPORT FROM AM SHIFT NURSE FOR CONTINUITY OF CARE. PATIENT IN BED RESTING COMFORTABLY. ON O2 AT 3L VIA N/C. NOT IN DISTRESS NOTED. ALL SAFETY MEASURES IN PLACE. CALL LIGHT WITHIN REACH. WILL CONTINUE TO WITH CURRENT PLAN OF CARE.
--- NOTE | 2021-11-20 21:39 | NUR ---
PT WAS SEEN AND ASSESSED. PT WAS ON NASAL CANNULA WITH SPO2 OF 98%. PT IS IN NO RESPIRATORY DISTRESS AT THIS TIME. PRN TREATMENT NOT INDICATED AT THIS TIME. WILL CONTINUE TO MONITOR.
--- NOTE | 2021-11-20 21:55 | NUR ---
ADMINISTERED SCHEDULE MEDICATIONS VIA CoinsetterUBE PER MD ORDERED. KAROLINA WELL. NO ASE NOTED. ALL SAFETY MEASURES IN PLACE. CALL LIGHT WITHIN REACH. WILL CONTINUE TO MONITOR.
[2021-11-21] MEDS: HYDRAGUARD CREAM TP SCH ×2 (01:05→13:00)
--- NOTE | 2021-11-21 02:31 | NUR ---
Patient's Plan of Care was discussed and reviewed with INDUSTRIAL ENGINEERING INTERN: PAMELA FALL
--- NOTE | 2021-11-21 03:58 | NUR ---
CHECKED ON PATIENT. SLEEPING WELL. VISIBLE CHEST RISING AND FALLING. ALL SAFETY MEASURES IN PLACE. CALL LIGHT WITHIN REACH. WILL CONTINUE TO MONITOR.
[2021-11-21] MEDS: LANSOPRAZOLE 30 MG CAPDR GT SCH (05:55)
[2021-11-21 07:01] LABS: BASOPHILS % (AUTO) 0.3 % (0.0-2.0); EOSINOPHILS # (AUTO) 0.1 K/uL (0-0.4); HEMOGLOBIN 11.4 g/dL (12.0-18.0); LYMPHOCYTES # (AUTO) 1.9 K/uL (2.0-11.5); LYMPHOCYTES % (AUTO) 16.7 % (20.5-51.1); MEAN CORPUSCULAR HEMOGLOBIN 30 pg (27-31); MEAN CORPUSCULAR HGB CONC 33 g/dL (33-37); MEAN CORPUSCULAR VOLUME 91.7 fL (80-94); MONOCYTES # (AUTO) 0.9 K/uL (0.8-1.0); MONOCYTES % (AUTO) 8.4 % (1.7-9.3); NEUTROPHILS # (AUTO) 8.3 K/uL (1.8-7.7); NEUTROPHILS % (AUTO) 73.6 % (42.2-75.2); PLATELET COUNT (AUTO) 328 K/uL (140-450); RED BLOOD CELL COUNT(AUTO) 3.81 MIL/uL (4.20-6.10); RED CELL DISTRIBUTION WIDTH 15.5 % (11.6-13.7); WHITE BLOOD COUNT (AUTO) 11.2 K/uL (4.8-10.8)
[2021-11-21 07:17] LABS: ANION GAP 10.6 (8-16); CREATININE 0.5 mg/dL (0.6-1.3); POTASSIUM 4.6 mmol/L (3.5-5.1)
--- NOTE | 2021-11-21 07:28 | NUR ---
ENDORSED PATIENT REPORT TO AM SHIFT NURSE FOR CONTINUITY OF CARE. PATIENT IS STABLE.
--- NOTE | 2021-11-21 07:29 | NUR ---
RECEIVED REPORT FROM REGIONAL ADMINISTRATIVE ASSISTANT NURSE FOR CONTINUITY OF CARE. PT IS IN BED RESTING AT THIS TIME. RESPIRATIONS ARE EVEN AND UNLABORED. NO SIGNS OF DISTRESS NOTED. CALL LIGHT WITHIN REACH. ALL SAFETY MEASURES IN PLACE. WILL CONTINUE TO MONITOR.
[2021-11-21 08:00] VITALS: BP 129/69
--- NOTE | 2021-11-21 08:00 | NUR ---
Patient's Plan of Care was discussed and reviewed with CERTIFICATION TECHNICIAN: CLARISSA DE LEON
--- NOTE | 2021-11-21 08:15 | NUR ---
PT IV IS NO LONGER PATENT. WILL ATTEMPT NEW IV ACCESS.
[2021-11-21] MEDS: ASCORBIC ACID 500 MG TAB GT SCH (09:32)
[2021-11-21] MEDS: POLYETHYLENE GLYCOL 17 GM/PKT GT SCH (09:32)
[2021-11-21] MEDS: OXcarbazepine 150 MG TAB GT SCH ×2 (09:32→20:31)
[2021-11-21] MEDS: lisinopriL 5 MG TAB GT SCH (09:33)
[2021-11-21] MEDS: MULTIVITAMIN 1 TAB PO SCH (09:33)
[2021-11-21] MEDS: APIXABAN 2.5 MG TAB GT SCH ×2 (09:38→20:31)
[2021-11-21] MEDS: MUPIROCIN CA NASAL 2% 1GM TUBE NS SCH (13:00)
[2021-11-21] MEDS: CHLORHEXADINE GLUC 2% CLOTH TP SCH (13:00)
--- NOTE | 2021-11-21 13:10 | NUR ---
ASSISTED WITH CHANGING AND REPOSITIONING PT. PT TOLERATED WELL. WILL CONTINUE TO MONITOR.
[2021-11-21 16:00] VITALS: BP 99/65
[2021-11-21] MEDS: CEFEPIME 1,000 MG in DEXTROSE 5% 50 ML IV SCH ×2 (16:45→20:30)
--- NOTE | 2021-11-21 16:45 | NUR ---
NEW IV ACCESS. PT TOLERATED WELL. WILL CONTINUE TO MONITOR.
[2021-11-21] MEDS: LINEZOLID 600MG PREMIX 300 ML IV SCH ×2 (17:02→21:17)
--- NOTE | 2021-11-21 19:05 | NUR ---
ENDORSED PT TO DIRECTOR STUDENT UNION NURSE FOR CONTINUITY OF CARE. PT IS STABLE.
--- NOTE | 2021-11-21 20:00 | NUR ---
RECEIVED REPORT OF PT IN STABLE CONDITION.RESP.UNLABORED W/O2 AT 3L/NC.LUNGS DIMINISHED.NO DISTRESS NOTED AT THIS TIME.WILL CONTINUE MONITORING.
--- NOTE | 2021-11-21 20:47 | NUR ---
PT WAS SEEN AND ASSESSED. PT WAS ON 4L NASAL CANNULA WITH SPO2 OF 92%. PT IS IN NO RESPIRATORY DISTRESS AT THIS TIME. PRN TREATMENT NOT INDICATED AT THIS TIME. WILL CONTINUE TO MONITOR.
[2021-11-22] VITALS: BP 112/69
[2021-11-22] MEDS: HYDRAGUARD CREAM TP SCH ×2 (01:27→13:01)
[2021-11-22] MEDS: LANSOPRAZOLE 30 MG CAPDR GT SCH (05:39)
--- NOTE | 2021-11-22 06:55 | NUR ---
PT IS STABLE.HAD LARGE BM.NO DISTRESS NOTED AT PRESENT TIME.
[2021-11-22 07:02] LABS: BASOPHILS % (AUTO) 0.1 % (0.0-2.0); EOSINOPHILS # (AUTO) 0.1 K/uL (0-0.4); EOSINOPHILS % (AUTO) 0.9 % (0.0-4.0); HEMATOCRIT 31.8 % (36-52); HEMOGLOBIN 10.8 g/dL (12.0-18.0); LYMPHOCYTES # (AUTO) 2.1 K/uL (2.0-11.5); LYMPHOCYTES % (AUTO) 16.8 % (20.5-51.1); MEAN CORPUSCULAR HEMOGLOBIN 31 pg (27-31); MEAN CORPUSCULAR HGB CONC 34 g/dL (33-37); MEAN CORPUSCULAR VOLUME 90.2 fL (80-94); MONOCYTES # (AUTO) 1.1 K/uL (0.8-1.0); MONOCYTES % (AUTO) 9.2 % (1.7-9.3); PLATELET COUNT (AUTO) 315 K/uL (140-450); RED BLOOD CELL COUNT(AUTO) 3.53 MIL/uL (4.20-6.10); RED CELL DISTRIBUTION WIDTH 15.1 % (11.6-13.7); WHITE BLOOD COUNT (AUTO) 12.3 K/uL (4.8-10.8)
--- NOTE | 2021-11-22 07:20 | NUR ---
RECEIVED REPORT FROM SUPERVISOR BEEHIVE KILN NURSE FOR CONTINUITY OF CARE. PT RESPIRATIONS ARE EVEN AND UNLABORED. NO SIGNS OF DISTRESS NOTED. NO SIGNS OF PAIN OR DISCOMFORT NOTED. CALL LIGHT WITHIN REACH. ALL SAFETY MEASURES IN PLACE. WILL CONTINUE TO MONITOR.
--- NOTE | 2021-11-22 07:22 | NUR ---
REPORT GIVEN TO AM SHIFT .PT'S CONDITION IS STABLE.
[2021-11-22 08:00] VITALS: BP 114/64
--- NOTE | 2021-11-22 08:00 | NUR ---
Patient's Plan of Care was discussed and reviewed with DOOR OPERATOR: CLARISSA DE LEON
[2021-11-22 08:16] LABS: ANION GAP 10.5 (8-16); CARBON DIOXIDE 30.5 mmol/L (21-32); CREATININE 0.4 mg/dL (0.6-1.3); TOTAL BILIRUBIN 0.1 mg/dL (0.0-1.0)
[2021-11-22] MEDS: CEFEPIME 1,000 MG in DEXTROSE 5% 50 ML IV SCH ×2 (08:29→22:10)
[2021-11-22] MEDS: OXcarbazepine 150 MG TAB GT SCH ×2 (09:03→21:14)
[2021-11-22] MEDS: ASCORBIC ACID 500 MG TAB GT SCH (09:03)
[2021-11-22] MEDS: MULTIVITAMIN 1 TAB PO SCH (09:03)
[2021-11-22] MEDS: lisinopriL 5 MG TAB GT SCH (09:04)
[2021-11-22] MEDS: POLYETHYLENE GLYCOL 17 GM/PKT GT SCH (09:06)
[2021-11-22] MEDS: APIXABAN 2.5 MG TAB GT SCH ×2 (09:06→21:17)
--- NOTE | 2021-11-22 09:06 | NUR ---
ADMINISTERED ALL SCHEDULED MEDS. EDUCATED PT ON MEDS ADMINISTERED. NO RESPONSE FROM PT. CALL LIGHT WITHIN REACH. ALL SAFETY MEASURES IN PLACE. WILL CONTINUE TO MONITOR.
[2021-11-22] MEDS: LINEZOLID 600MG PREMIX 300 ML IV SCH ×2 (09:07→22:10)
[2021-11-22] MEDS: CHLORHEXADINE GLUC 2% CLOTH TP SCH (13:01)
[2021-11-22] MEDS: MUPIROCIN CA NASAL 2% 1GM TUBE NS SCH (13:01)
--- NOTE | 2021-11-22 13:20 | NUR ---
CALLED PT [facility] TO GET FAMILY CONTACT NUMBER IN ORDER TO GET CONSENT FOR MIDLINE PLACEMENT. PER ABELINO AND MARLEE, THEY DO NOT HAVE ANY FAMILY CONTACT. [facility] STAFF REFERRED ME TO [facility] [place] WORKER FOR PT, NEMESIO. CALLED NEMESIO AND WAS TOLD THAT [facility] DOES HAVE FAMILY CONTACT INFO, HOWEVER, NEMESIO STATES THAT SHE WILL CALL ME LATER WITH FAMILY CONTACT INFORMATION, SHE IS NOT IN HER OFFICE AT THIS TIME. WILL FOLLOW UP.
--- NOTE | 2021-11-22 13:50 | NUR ---
RECEIVED FAMILY CONTACT INFORMATION: BROTHER AND SISTER IN LAW VANDANA [phone], . OBTAINED TELEPHONE CONSENT FOR MIDLINE PLACEMENT. CALLED PICC LINE NURSE. ORDER REFERRED TO
[2021-11-22 16:00] VITALS: BP 133/75
--- NOTE | 2021-11-22 17:12 | NUR ---
PICC LINE NURSE AT BEDSIDE TO INSERT MIDLINE. WILL CONTINUE TO MONITOR.
--- NOTE | 2021-11-22 17:40 | NUR ---
MARLENI MIDLINE IN PLACE. PT TOLERATED WELL. WILL CONTINUE TO MONITOR.
--- NOTE | 2021-11-22 19:21 | NUR ---
ENDORSED PT TO TRACK LAYING MACHINE OPERATOR NURSE FOR CONTINUITY OF CARE. PT IS STABLE.
--- NOTE | 2021-11-22 19:22 | NUR ---
RECEIVED REPORT FROM MORNING SHIFT NURSE FOR CONTINUITY OF CARE. PATIENT IS STABLE IN BED. A&OX1. AROUSABLE TO NAME, RESPONDS TO TOUCH, AND FOLLOWS VERBAL COMMANDS. FLACC=0. ON 3L NC WITH AN O2 SAT OF 96%. RESPIRATIONS EVEN AND UNLABORED WITH NO APPARENT S/SX OF ACUTE DISTRESS. IV SITE RH 24G IS PATENT/INTACT AND MARLENI MIDLINE PATENT/INTACT SL. PATIENT IS INCONTINENT AND UTILIZES PULL UPS. PLAN OF CARE AND WHITE COMMUNICATION BOARD UPDATED. BED IN LOW/LOCKED POSITION. CALL LIGHT WITHIN REACH. WILL CONTINUE TO MONITOR.
--- NOTE | 2021-11-22 20:00 | NUR ---
Patient's Plan of Care was discussed and reviewed with CRISIS MANAGER: PHILL YUNG
--- NOTE | 2021-11-22 21:05 | NUR ---
ADMINISTERED SCHEDULED MEDICATIONS PER MD ORDER. NO RESIDUALS NOTED AT THIS TIME. TOLERATED WELL. NO ADVERSE REACTION NOTED. DENIES PAIN. RESPIRATIONS EVEN AND UNLABORED WITH NO APPARENT S/SX OF ACUTE DISTRESS. WHITE COMMUNICATION BOARD UPDATED. ALL SAFETY MEASURES IN PLACE. CALL LIGHT WITHIN REACH. WILL CONTINUE TO MONITOR.
--- NOTE | 2021-11-22 23:05 | NUR ---
CHECKED PATIENT. STABLE AND AWAKE WHILE WATCHING TV. FLACC=0. RESPIRATIONS EVEN AND UNLABORED WITH NO APPARENT S/SX OF ACUTE DISTRESS. WHITE COMMUNICATION BOARD UPDATED. ALL SAFETY MEASURES IN PLACE. CALL LIGHT WITHIN REACH. WILL CONTINUE TO MONITOR.
--- NOTE | 2021-11-23 01:05 | NUR ---
ROUNDED ON PATIENT. STABLE AND ASLEEP. CHEST RISING AND FALLING SYMMETRICALLY. RESPIRATIONS EVEN AND UNLABORED WITH NO APPARENT S/SX OF ACUTE DISTRESS. WHITE COMMUNICATION BOARD UPDATED. ALL SAFETY MEASURES IN PLACE. CALL LIGHT WITHIN REACH. WILL CONTINUE TO MONITOR.
[2021-11-23] MEDS: HYDRAGUARD CREAM TP SCH ×2 (01:20→13:19)
[2021-11-23 04:00] VITALS: BP 129/71
--- NOTE | 2021-11-23 05:05 | NUR ---
CLEANED AND CHANGED PATIENT. TOLERATED WELL. FLACC=0. RESPIRATIONS EVEN AND UNLABORED WITH NO APPARENT S/SX OF ACUTE DISTRESS. ALL NEEDS MET. WHITE COMMUNICATION BOARD UPDATED. ALL SAFETY MEASURES IN PLACE. CALL LIGHT WITHIN REACH. WILL CONTINUE TO MONITOR.
[2021-11-23] MEDS: LANSOPRAZOLE 30 MG CAPDR GT SCH (05:33)
--- NOTE | 2021-11-23 07:05 | NUR ---
ENDORSED PATIENT TO MORNING SHIFT NURSE FOR CONTINUITY OF CARE. PATIENT IS STABLE.
--- NOTE | 2021-11-23 07:07 | NUR ---
RECEIVED ENDORSEMENT FROM CONSTRUCTION DRILLER NURSE FOR CONTINUITY OF CARE.
[2021-11-23 07:14] LABS: BASOPHILS % (AUTO) 0.4 % (0.0-2.0); EOSINOPHILS # (AUTO) 0.2 K/uL (0-0.4); EOSINOPHILS % (AUTO) 1.2 % (0.0-4.0); HEMATOCRIT 33.1 % (36-52); HEMOGLOBIN 10.9 g/dL (12.0-18.0); LYMPHOCYTES # (AUTO) 2.1 K/uL (2.0-11.5); LYMPHOCYTES % (AUTO) 16.1 % (20.5-51.1); MEAN CORPUSCULAR HEMOGLOBIN 30 pg (27-31); MEAN CORPUSCULAR HGB CONC 33 g/dL (33-37); MEAN CORPUSCULAR VOLUME 91.5 fL (80-94); MONOCYTES # (AUTO) 1.1 K/uL (0.8-1.0); MONOCYTES % (AUTO) 8.6 % (1.7-9.3); NEUTROPHILS # (AUTO) 9.7 K/uL (1.8-7.7); NEUTROPHILS % (AUTO) 73.7 % (42.2-75.2); PLATELET COUNT (AUTO) 358 K/uL (140-450); RED BLOOD CELL COUNT(AUTO) 3.62 MIL/uL (4.20-6.10); WHITE BLOOD COUNT (AUTO) 13.2 K/uL (4.8-10.8)
--- NOTE | 2021-11-23 08:15 | NUR ---
PT NOTED WITH VOMITING X1 WITH MODERATED AMOUNT OF GT FEEDING. GT FEEDING HELD
[2021-11-23 08:23] LABS: CARBON DIOXIDE 30.7 mmol/L (21-32); CREATININE 0.4 mg/dL (0.6-1.3); POTASSIUM 4.7 mmol/L (3.5-5.1)
[2021-11-23] MEDS: MULTIVITAMIN 1 TAB PO SCH (08:55)
[2021-11-23] MEDS: lisinopriL 5 MG TAB GT SCH (08:55)
[2021-11-23] MEDS: ASCORBIC ACID 500 MG TAB GT SCH (08:56)
[2021-11-23] MEDS: OXcarbazepine 150 MG TAB GT SCH ×2 (08:56→21:31)
[2021-11-23] MEDS: POLYETHYLENE GLYCOL 17 GM/PKT GT SCH (08:56)
[2021-11-23] MEDS: APIXABAN 2.5 MG TAB GT SCH (08:57)
[2021-11-23] MEDS: CEFEPIME 1,000 MG in DEXTROSE 5% 50 ML IV SCH ×2 (09:00→21:12)
--- NOTE | 2021-11-23 09:00 | NUR ---
GIVEN ALL GT MEDICATION VIA GT.HEAD OF BED ELEVATED FOR ASPIRATION PRECAUTION ALL SAFETY MEASURE IN PLACE..
[2021-11-23] MEDS: LINEZOLID 600MG PREMIX 300 ML IV SCH ×2 (09:53→22:19)
[2021-11-23 12:00] VITALS: BP 126/85
--- NOTE | 2021-11-23 12:25 | NUR ---
DR. MEDEIROS CARDIOLOGY AT BED SIDE
--- NOTE | 2021-11-23 13:00 | NUR ---
ERIKA CARE PROVIDED AND TREATMENT ON NARES DONE TOLERATED WELL. ALL SAFETY PRECAUTION IN PLACE. HEAD OF BED ELEVATED FOR ASPIRATION PRECAUTION. NO NAUSEA OR VOMITING NOTED. NO ADVERSE REACTION ON ANTIBIOTIC THERAPY. NO EPISODE OF SEIZURE.
[2021-11-23] MEDS: MUPIROCIN CA NASAL 2% 1GM TUBE NS SCH (13:18)
[2021-11-23] MEDS: CHLORHEXADINE GLUC 2% CLOTH TP SCH (13:19)
--- NOTE | 2021-11-23 14:34 | NUR ---
PT ASLEEP NO DISCOMFORT NOTED. CONTACT ISOLATION OBSERVE.
--- NOTE | 2021-11-23 17:26 | NUR ---
DR. BULLOCK AT BED SIDE WITH BLOOD DRAWN ORDER FOR TOMORROW
--- NOTE | 2021-11-23 19:00 | NUR ---
PT ON STABLE CONDITION HEAD OF BED ELEVATED FOR ASPIRATION PRECAUTION. ALL SAFETY MEASURE IN PLACE.
--- NOTE | 2021-11-23 19:10 | NUR ---
ADMINISTERED SCHEDULED MEDICATIONS PER MD ORDER. NO RESIDUALS NOTED AT THIS TIME. TOLERATED WELL. NO ADVERSE REACTION NOTED. DENIES PAIN. RESPIRATIONS EVEN AND UNLABORED WITH NO APPARENT S/SX OF ACUTE DISTRESS. WHITE COMMUNICATION BOARD UPDATED. ALL SAFETY MEASURES IN PLACE. CALL LIGHT WITHIN REACH. WILL CONTINUE TO MONITOR. Addendum: 11/23/21 at 2149 by Killian Shetty LVN WRONG TIME. CORRECT TIME: 2109
--- NOTE | 2021-11-23 19:25 | NUR ---
GAVE REPORT TO MACHINE SHOP SPECIALIST NURSE FOR CONTINUITY OF CARE.
[2021-11-23 20:00] VITALS: BP 129/69
--- NOTE | 2021-11-23 22:00 | NUR ---
Patient's Plan of Care was discussed and reviewed with CORE SETTER: PHILL YUNG
--- NOTE | 2021-11-23 23:10 | NUR ---
CHECKED PATIENT. STABLE AND ASLEEP. CHEST IS RISING AND FALLING EVENLY. RESPIRATIONS EVEN AND UNLABORED WITH NO APPARENT S/SX OF ACUTE DISTRESS. WHITE COMMUNICATION BOARD UPDATED. ALL SAFETY MEASURES IN PLACE. CALL LIGHT WITHIN REACH. WILL CONTINUE TO MONITOR.
--- NOTE | 2021-11-24 01:10 | NUR ---
ROUNDED ON PATIENT. STABLE AND ASLEEP. CHEST IS RISING AND FALLING EVENLY. RESPIRATIONS EVEN AND UNLABORED WITH NO APPARENT S/SX OF ACUTE DISTRESS. WHITE COMMUNICATION BOARD UPDATED. ALL SAFETY MEASURES IN PLACE. CALL LIGHT WITHIN REACH. WILL CONTINUE TO MONITOR.
[2021-11-24] MEDS: HYDRAGUARD CREAM TP SCH ×2 (01:32→13:02)
[2021-11-24 04:00] VITALS: BP_SYST 109; BP_SYST 119; BP_DIAS 69; BP_DIAS 71
--- NOTE | 2021-11-24 05:10 | NUR ---
CHANGED PATIENT'S GT FEEDING BAG AND TUBES. PATIENT IS AWAKE AND STABLE. FLACC=0. RESPIRATIONS EVEN AND UNLABORED WITH NO APPARENT S/SX OF ACUTE DISTRESS. WHITE COMMUNICATION BOARD UPDATED. ALL SAFETY MEASURES IN PLACE. CALL LIGHT WITHIN REACH. WILL CONTINUE TO MONITOR.
[2021-11-24] MEDS: LANSOPRAZOLE 30 MG CAPDR GT SCH (06:44)
--- NOTE | 2021-11-24 07:02 | NUR ---
ENDORSED PATIENT TO MORNING SHIFT NURSE FOR CONTINUITY OF CARE. PATIENT IS STABLE.
--- NOTE | 2021-11-24 07:18 | NUR ---
RECEIVED ENDORSEMENT FROM EVP MARKETING NURSE FOR CONTINUITY OF CARE.
[2021-11-24 07:47] LABS: ANION GAP 9.9 (8-16); CARBON DIOXIDE 31.1 mmol/L (21-32); CREATININE 0.4 mg/dL (0.6-1.3)
[2021-11-24 07:48] LABS: BASOPHILS % (AUTO) 0.4 % (0.0-2.0); EOSINOPHILS # (AUTO) 0.2 K/uL (0-0.4); EOSINOPHILS % (AUTO) 1.3 % (0.0-4.0); HEMATOCRIT 31.3 % (36-52); HEMOGLOBIN 10.5 g/dL (12.0-18.0); LYMPHOCYTES # (AUTO) 2.5 K/uL (2.0-11.5); LYMPHOCYTES % (AUTO) 20.8 % (20.5-51.1); MEAN CORPUSCULAR HEMOGLOBIN 30 pg (27-31); MEAN CORPUSCULAR HGB CONC 34 g/dL (33-37); MEAN CORPUSCULAR VOLUME 90.2 fL (80-94); MONOCYTES % (AUTO) 8.2 % (1.7-9.3); NEUTROPHILS # (AUTO) 8.3 K/uL (1.8-7.7); NEUTROPHILS % (AUTO) 69.3 % (42.2-75.2); PLATELET COUNT (AUTO) 355 K/uL (140-450); RED BLOOD CELL COUNT(AUTO) 3.47 MIL/uL (4.20-6.10)
[2021-11-24] MEDS: lisinopriL 5 MG TAB GT SCH (09:00)
[2021-11-24] MEDS: ASCORBIC ACID 500 MG TAB GT SCH (09:43)
[2021-11-24] MEDS: POLYETHYLENE GLYCOL 17 GM/PKT GT SCH (09:43)
[2021-11-24] MEDS: OXcarbazepine 150 MG TAB GT SCH ×2 (09:43→21:23)
[2021-11-24] MEDS: MULTIVITAMIN 1 TAB PO SCH (09:43)
[2021-11-24] MEDS: LINEZOLID 600MG PREMIX 300 ML IV SCH ×2 (09:44→21:21)
--- NOTE | 2021-11-24 09:55 | NUR ---
GIVEN ALL DUE MEDICATION TOLERATED WELL. GT RESIDUAL AT 5CC ONLY. RN GIVEN IV LISINOZID NO ADVERSE REACTION NOTED. HEAD OF BED ELEVATED FOR ASPIRATION PRECAUTION.
[2021-11-24 12:00] VITALS: BP 97/63
--- NOTE | 2021-11-24 12:00 | NUR ---
BLOOD SUGAR CHECK AND COVERAGE GIVEN. PT HAD BM MEDIUM FORM. ASSISTED TO CHANGE AND CLEANSE PT. Addendum: 11/24/21 at 1254 by Lidya Beckett LVN WRONG ENTRY.
--- NOTE | 2021-11-24 12:00 | NUR ---
PT ON BED ASLEEP NO DISCOMFORT NOTED. NO ADVERSE REACTION NOTED.
--- NOTE | 2021-11-24 13:30 | NUR ---
TREATMENT ON GT SITE AND BUTTOCKS REDNESS. SKIN CARE PROVIDED. KEEP HEAD OF BED ELEVATED FOR ASPIRATION PRECAUTION.
--- NOTE | 2021-11-24 15:30 | NUR ---
PT ON BED ASLEEP NO DISTRESS NOTED. ON O2 AT 3 L/MIN VIA NASAL CANULA.
--- NOTE | 2021-11-24 17:30 | NUR ---
ASSISTED BY NURSE ORTHO FOR SKIN CARE. TOLERATED WELL.
--- NOTE | 2021-11-24 18:37 | NUR ---
PT ON STABLE CONDITION AWAKE. ALL SAFETY MEASURE IN PLACE.
--- NOTE | 2021-11-24 19:05 | NUR ---
ADMINISTERED SCHEDULED MEDICATIONS PER MD ORDER. NO RESIDUALS NOTED AT THIS TIME. TOLERATED WELL. NO ADVERSE REACTION NOTED. DENIES PAIN. RESPIRATIONS EVEN AND UNLABORED WITH NO APPARENT S/SX OF ACUTE DISTRESS. WHITE COMMUNICATION BOARD UPDATED. ALL SAFETY MEASURES IN PLACE. CALL LIGHT WITHIN REACH. WILL CONTINUE TO MONITOR. Addendum: 11/24/21 at 2200 by Killian Shetty LVN WRONG TIME. CORRECT TIME: 2104
--- NOTE | 2021-11-24 19:17 | NUR ---
GIVE REPORT TO HARDWARE ENGINEER NURSE FOR CONTINUITY OF CARE.
[2021-11-24 20:00] VITALS: BP 122/71
[2021-11-24] MEDS: ONDANSETRON 4 MG TAB GT SCH (21:23)
--- NOTE | 2021-11-24 21:30 | NUR ---
Patient's Plan of Care was discussed and reviewed with URGENT CARE NURSE PRACTITIONER: PHILL YUNG
[2021-11-25] MEDS: HYDRAGUARD CREAM TP SCH ×2 (01:15→13:00)
--- NOTE | 2021-11-25 03:05 | NUR ---
CHANGED PATIENT'S GT FEEDING BAG, WATER FLUSH BAG, AND GT FEEDING TUBES. PATIENT IS AWAKE AND STABLE. FLACC=0. RESPIRATIONS EVEN AND UNLABORED WITH NO APPARENT S/SX OF ACUTE DISTRESS. NASAL CANNULA IN PLACE. WHITE COMMUNICATION BOARD UPDATED. ALL SAFETY MEASURES IN PLACE. CALL LIGHT WITHIN REACH. WILL CONTINUE TO MONITOR.
[2021-11-25] MEDS: ONDANSETRON 4 MG TAB GT SCH (03:24)
[2021-11-25 04:00] VITALS: BP 126/90
[2021-11-25] MEDS: LANSOPRAZOLE 30 MG CAPDR GT SCH (06:18)
[2021-11-25 06:52] LABS: BASOPHILS % (AUTO) 0.2 % (0.0-2.0); EOSINOPHILS # (AUTO) 0.1 K/uL (0-0.4); EOSINOPHILS % (AUTO) 0.4 % (0.0-4.0); HEMATOCRIT 32.3 % (36-52); HEMOGLOBIN 10.8 g/dL (12.0-18.0); LYMPHOCYTES # (AUTO) 2.4 K/uL (2.0-11.5); LYMPHOCYTES % (AUTO) 14.2 % (20.5-51.1); MEAN CORPUSCULAR HEMOGLOBIN 30 pg (27-31); MEAN CORPUSCULAR HGB CONC 34 g/dL (33-37); MEAN CORPUSCULAR VOLUME 89.8 fL (80-94); MONOCYTES # (AUTO) 1.3 K/uL (0.8-1.0); MONOCYTES % (AUTO) 7.8 % (1.7-9.3); NEUTROPHILS # (AUTO) 12.8 K/uL (1.8-7.7); NEUTROPHILS % (AUTO) 77.4 % (42.2-75.2); PLATELET COUNT (AUTO) 418 K/uL (140-450); RED CELL DISTRIBUTION WIDTH 15.1 % (11.6-13.7); WHITE BLOOD COUNT (AUTO) 16.6 K/uL (4.8-10.8)
[2021-11-25 06:54] LABS: ALBUMIN 2.1 g/dL (3.4-5.0); CARBON DIOXIDE 33.3 mmol/L (21-32); CREATININE 0.4 mg/dL (0.6-1.3); POTASSIUM 4.3 mmol/L (3.5-5.1); TOTAL BILIRUBIN 0.3 mg/dL (0.0-1.0)
--- NOTE | 2021-11-25 07:05 | NUR ---
ENDORSED PATIENT TO MORNING SHIFT NURSE FOR CONTINUITY OF CARE. PATIENT IS STABLE.
--- NOTE | 2021-11-25 07:06 | NUR ---
RECEIVED REPORT FROM LASTING MACHINE OPERATOR HAND METHOD NURSE FOR CONTINUITY OF CARE. PT BREATHING IS EVEN AND UNLABORED. NO SIGNS OF DISTRESS NOTED. NO SIGNS OF PAIN OR DISCOMFORT NOTED. CALL LIGHT WITHIN REACH. ALL SAFETY MEASURES IN PLACE. PT IS STABLE.
[2021-11-25 08:00] VITALS: BP 117/78
[2021-11-25] MEDS: OXcarbazepine 150 MG TAB GT SCH ×2 (09:00→21:12)
[2021-11-25] MEDS: ASCORBIC ACID 500 MG TAB GT SCH (09:00)
[2021-11-25] MEDS: MULTIVITAMIN 1 TAB PO SCH (09:00)
[2021-11-25] MEDS: POLYETHYLENE GLYCOL 17 GM/PKT GT SCH (09:00)
--- NOTE | 2021-11-25 12:00 | NUR ---
PT BREATHING IS EVEN AND UNLABORED. NO SIGNS OF DISTRESS NOTED. NO SIGNS OF PAIN OR DISCOMFORT NOTED. CALL LIGHT WITHIN REACH. ALL SAFETY MEASURES IN PLACE. PT IS STABLE. WOUND CARE PERFORMED. PT TOLERATED WELL.
--- NOTE | 2021-11-25 15:34 | NUR ---
11/25/21 RD FOLLOW UP COMPLETED PLEASE REFER TO NUTRITION ASSESSMENT UNDER CARE ACTIVITY FOR ESTIMATED NUTRITIONAL NEEDS. 1. CONTINUE VITAL AF 1.2 @ 60 ML/HR TOLERATED -WATER FLUSH: 200 ML Q4H OR PER MD -PROVIDES 1728 KCAL AND 108 GM PROTEIN, MEETING 80% KCAL AND 100% PROTEIN NEEDS 2. RD TO FOLLOW-UP 3-5 DAYS, MODERATE RISK ROJAS MCCORMICK RD
[2021-11-25 16:00] VITALS: BP 139/76
--- NOTE | 2021-11-25 16:00 | NUR ---
PT BREATHING IS EVEN AND UNLABORED. NO SIGNS OF DISTRESS NOTED. NO SIGNS OF PAIN OR DISCOMFORT NOTED. CALL LIGHT WITHIN REACH. ALL SAFETY MEASURES IN PLACE. PT IS STABLE.
--- NOTE | 2021-11-25 19:04 | NUR ---
ENDORSED PT TO TRANSPORTATION OPERATIONS MANAGER NURSE FOR CONTINUITY OF CARE.
[2021-11-25 20:00] VITALS: BP 128/80
--- NOTE | 2021-11-25 20:00 | NUR ---
PATIENT'S PLAN OF CARE WAS DISCUSSED AND REVIEWED WITH TIMOTHY YUNG.
--- NOTE | 2021-11-25 23:05 | NUR ---
CHANGED PATIENT'S GT FEEDING BAG, TUBES, AND WATER FLUSH. PATIENT IS STABLE AND AWAKE. FLACC=0. RESPIRATIONS EVEN AND UNLABORED WITH NO APPARENT S/SX OF ACUTE DISTRESS. WHITE COMMUNICATION BOARD UPDATED. ALL SAFETY MEASURES IN PLACE. CALL LIGHT WITHIN REACH. WILL CONTINUE TO MONITOR.
[2021-11-26] MEDS ORDERED: PIPERACILLIN/TAZOBACTAM 3.375 GM in DEXTROSE 5% 50 ML IV SCH ×2
--- NOTE | 2021-11-26 00:30 | NUR ---
CALLED PHARMACY TO CLARIFY DR. CASTILLO'S ORDER OF ZOSYN Q6 AND Q8. SPOKE WITH MARCELINA AND ADVISED TO REACH OUT TO DR. CASTILLO. MESSAGED DR. CASTILLO TO CLARIFY ORDER. AWAITING FOR A RESPONSE.
[2021-11-26] MEDS: HYDRAGUARD CREAM TP SCH ×2 (01:26→13:56)
--- NOTE | 2021-11-26 02:40 | NUR ---
PHARMACY CALLED TO FOLLOW UP WITH DR. CASTILLO'S CLARIFICATION ON ZOSYN ORDERS. ENDORSED TO PHARMACY THAT DR. CASTILLO HAS NOT RESPONDED. ENDORSED TO PHARMACY PER MD'S PROGRESS NOTES THAT PATIENT IS OFF ANTIBIOTIC AND WILL BE MONITORED FOR S/SX OF INFECTION.
[2021-11-26 04:00] VITALS: BP 124/85
[2021-11-26] MEDS: PIPERACILLIN/TAZOBACTAM 3.375 GM in DEXTROSE 5% 50 ML IV SCH ×3 (05:00→22:31)
[2021-11-26] MEDS ORDERED: PIPERACILLIN/TAZOBACTAM 3.375 GM VIAL IV ONE (06:25)
[2021-11-26] MEDS: LANSOPRAZOLE 30 MG CAPDR GT SCH (06:32)
[2021-11-26] MEDS ORDERED: ONDANSETRON 4 MG TAB GT PRN (06:39)
[2021-11-26 06:59] LABS: BASOPHILS % (AUTO) 0.2 % (0.0-2.0); EOSINOPHILS # (AUTO) 0.1 K/uL (0-0.4); EOSINOPHILS % (AUTO) 0.3 % (0.0-4.0); HEMATOCRIT 31.8 % (36-52); HEMOGLOBIN 10.7 g/dL (12.0-18.0); MEAN CORPUSCULAR HEMOGLOBIN 30 pg (27-31); MEAN CORPUSCULAR HGB CONC 34 g/dL (33-37); MEAN CORPUSCULAR VOLUME 89.3 fL (80-94); MONOCYTES # (AUTO) 1.1 K/uL (0.8-1.0); MONOCYTES % (AUTO) 6.2 % (1.7-9.3); NEUTROPHILS # (AUTO) 14.7 K/uL (1.8-7.7); NEUTROPHILS % (AUTO) 82.3 % (42.2-75.2); PLATELET COUNT (AUTO) 443 K/uL (140-450); RED BLOOD CELL COUNT(AUTO) 3.56 MIL/uL (4.20-6.10); WHITE BLOOD COUNT (AUTO) 17.9 K/uL (4.8-10.8)
[2021-11-26 07:00] LABS: ANION GAP 10.1 (8-16); CARBON DIOXIDE 32.2 mmol/L (21-32); CREATININE 0.3 mg/dL (0.6-1.3); POTASSIUM 4.3 mmol/L (3.5-5.1)
--- NOTE | 2021-11-26 07:05 | NUR ---
ENDORSED PATIENT TO MORNING SHIFT FOR CONTINUITY OF CARE. PATIENT IS STABLE.
--- NOTE | 2021-11-26 07:06 | NUR ---
RECEIVED REPORT FROM ATTENUATOR NURSE FOR CONTINUITY OF CARE. PT BREATHING IS EVEN AND UNLABORED. NO SIGNS OF DISTRESS NOTED. NO SIGNS OF PAIN OR DISCOMFORT NOTED. CALL LIGHT WITHIN REACH. ALL SAFETY MEASURES IN PLACE. PT IS STABLE.
[2021-11-26 08:00] VITALS: BP 128/89
[2021-11-26] MEDS: POLYETHYLENE GLYCOL 17 GM/PKT GT SCH (09:00)
[2021-11-26] MEDS: MULTIVITAMIN 1 TAB PO SCH (09:00)
[2021-11-26] MEDS: ASCORBIC ACID 500 MG TAB GT SCH (09:00)
[2021-11-26] MEDS: OXcarbazepine 150 MG TAB GT SCH ×2 (09:00→22:30)
--- NOTE | 2021-11-26 12:00 | NUR ---
STATED NO DC DUE TO INFECTION. PT BREATHING IS EVEN AND UNLABORED. NO SIGNS OF DISTRESS NOTED. NO SIGNS OF PAIN OR DISCOMFORT NOTED. CALL LIGHT WITHIN REACH. ALL SAFETY MEASURES IN PLACE. PT IS STABLE.
--- NOTE | 2021-11-26 14:46 | NUR ---
CHANGED TUBE FEEDING TO A NEW BAG AND SET. PT TOLERATING WELL. NO N/V. PT BREATHING IS EVEN AND UNLABORED. NO SIGNS OF DISTRESS NOTED. NO SIGNS OF PAIN OR DISCOMFORT NOTED. CALL LIGHT WITHIN REACH. ALL SAFETY MEASURES IN PLACE. PT IS STABLE.
[2021-11-26 16:00] VITALS: BP 108/77
--- NOTE | 2021-11-26 19:05 | NUR ---
ENDORSED TO MEDICAL CLAIMS MANAGER NURSE FOR CONTINUITY OF CARE. POC DISCUSSED.
[2021-11-27] MEDS: PIPERACILLIN/TAZOBACTAM 3.375 GM in DEXTROSE 5% 50 ML IV SCH ×3 (05:59→20:32)
[2021-11-27] MEDS: HYDRAGUARD CREAM TP SCH ×2 (06:00→13:40)
[2021-11-27] MEDS: LANSOPRAZOLE 30 MG CAPDR GT SCH (06:07)
[2021-11-27 07:17] LABS: BASOPHILS % (AUTO) 0.2 % (0.0-2.0); EOSINOPHILS % (AUTO) 0.1 % (0.0-4.0); HEMOGLOBIN 10.9 g/dL (12.0-18.0); LYMPHOCYTES # (AUTO) 1.4 K/uL (2.0-11.5); LYMPHOCYTES % (AUTO) 7.1 % (20.5-51.1); MEAN CORPUSCULAR HEMOGLOBIN 31 pg (27-31); MEAN CORPUSCULAR HGB CONC 34 g/dL (33-37); MEAN CORPUSCULAR VOLUME 89.5 fL (80-94); NEUTROPHILS # (AUTO) 17.9 K/uL (1.8-7.7); NEUTROPHILS % (AUTO) 87.6 % (42.2-75.2); PLATELET COUNT (AUTO) 483 K/uL (140-450); RED BLOOD CELL COUNT(AUTO) 3.58 MIL/uL (4.20-6.10); WHITE BLOOD COUNT (AUTO) 20.4 K/uL (4.8-10.8)
--- NOTE | 2021-11-27 07:25 | NUR ---
RECEIVED REPORT FROM CRIMINAL DEFENSE LAWYER NURSE. PATIENT LYING DOWN IN BED, WATCHING TV. NO DISTRESS NOTED. ON O2 3L/MIN VIA NC. MARLENI MIDLINE IN PLACE, INTACT, PATENT. FLACC 0. AAOX1, CALM. REVIEWED PLAN OF CARE OF WITH PATIENT. SAFETY MEASURES IN PLACE, CALL LIGHT WITHIN REACH. WILL CONTINUE TO MONITOR.
[2021-11-27 07:37] LABS: ANION GAP 7.5 (8-16); CARBON DIOXIDE 36.8 mmol/L (21-32); CREATININE 0.5 mg/dL (0.6-1.3); POTASSIUM 4.3 mmol/L (3.5-5.1)
[2021-11-27 08:00] VITALS: BP 142/82
[2021-11-27] MEDS: POLYETHYLENE GLYCOL 17 GM/PKT GT SCH (08:47)
[2021-11-27] MEDS: OXcarbazepine 150 MG TAB GT SCH ×2 (08:47→20:33)
[2021-11-27] MEDS: MULTIVITAMIN 1 TAB PO SCH (08:47)
[2021-11-27] MEDS: ASCORBIC ACID 500 MG TAB GT SCH (08:47)
--- NOTE | 2021-11-27 08:48 | NUR ---
SCHEDULED MEDICATIONS DUE GIVEN. WILL CONTINUE TO MONITOR.
--- NOTE | 2021-11-27 13:51 | NUR ---
SCHEDULED MEDICATIONS DUE GIVEN. WILL CONTINUE TO MONITOR.
[2021-11-27 16:00] VITALS: BP 144/78
--- NOTE | 2021-11-27 19:30 | NUR ---
RECEIVED BEDSIDE REPORT FROM DAY SHIFT RN FOR CONTINUITY OF CARE. PT IS NOT IN ANY DISTRESS. PT IS AWAKE IN BED. PT HAS NC 4L. BREATHING RHYTHMIC AND SYMMETRICAL. FEEDING RUNNING MD ORDER. BED AT THE LOWEST POSITION. ALL SAFETY MEASURES TAKEN. WILL CONTINUE TO MONITOR THE PT.
[2021-11-27 20:00] VITALS: BP 151/80
[2021-11-27] MEDS: APIXABAN 2.5 MG TAB GT SCH (20:35)
--- NOTE | 2021-11-27 20:35 | NUR ---
ALL DUE MEDS GIVEN. NO ADVERSE REACTION NOTED. WILL CONTINUE TO OBSERVE THE PT.
--- NOTE | 2021-11-28 00:54 | NUR ---
PT WAS CLEANED AND CHANGED. PT IS NOT IN ANY DISTRESS. BREATHING RHYTHMIC AND SYMMETRICAL. BED AT THE LOWEST POSITION. ALL SAFETY MEASURES TAKEN. WILL CONTINUE TO MONITOR THE PT.
--- NOTE | 2021-11-28 01:35 | NUR ---
PT IS SLEEPING COMFORTABLY IN BED. PT IS NOT IN ANY DISTRESS. BREATHING RHYTHMIC AND SYMMETRICAL. BED AT THE LOWEST POSITION. ALL SAFETY MEASURES TAKEN. WILL CONTINUE TO MONITOR THE PATIENT.
[2021-11-28] MEDS: HYDRAGUARD CREAM TP SCH ×2 (01:39→13:00)
[2021-11-28 04:00] VITALS: BP 150/81
[2021-11-28] MEDS: PIPERACILLIN/TAZOBACTAM 3.375 GM in DEXTROSE 5% 50 ML IV SCH ×3 (04:12→19:49)
--- NOTE | 2021-11-28 04:25 | NUR ---
PT IS SLEEPING IN BED COMFORTABLY. PT IS NOT IN ANY DISTRESS. BREATHING RHYTHMIC AND SYMMETRICAL. FEEDING RUNNING MD ORDER. BED AT THE LOWEST POSITION. ALL SAFETY MEASURES TAKEN. WILL CONTINUE TO MONITOR THE PT.
[2021-11-28] MEDS: LANSOPRAZOLE 30 MG CAPDR GT SCH (05:38)
[2021-11-28 07:14] LABS: BASOPHILS % (AUTO) 0.3 % (0.0-2.0); EOSINOPHILS # (AUTO) 0.1 K/uL (0-0.4); EOSINOPHILS % (AUTO) 0.8 % (0.0-4.0); HEMATOCRIT 29.2 % (36-52); HEMOGLOBIN 9.9 g/dL (12.0-18.0); LYMPHOCYTES # (AUTO) 2.5 K/uL (2.0-11.5); LYMPHOCYTES % (AUTO) 14.4 % (20.5-51.1); MEAN CORPUSCULAR HEMOGLOBIN 30 pg (27-31); MEAN CORPUSCULAR HGB CONC 34 g/dL (33-37); MEAN CORPUSCULAR VOLUME 89.2 fL (80-94); MONOCYTES # (AUTO) 1.3 K/uL (0.8-1.0); MONOCYTES % (AUTO) 7.5 % (1.7-9.3); NEUTROPHILS # (AUTO) 13.5 K/uL (1.8-7.7); PLATELET COUNT (AUTO) 463 K/uL (140-450); RED BLOOD CELL COUNT(AUTO) 3.28 MIL/uL (4.20-6.10); RED CELL DISTRIBUTION WIDTH 14.9 % (11.6-13.7); WHITE BLOOD COUNT (AUTO) 17.5 K/uL (4.8-10.8)
--- NOTE | 2021-11-28 07:21 | NUR ---
ENDORSED PT TO DAY SHIFT RN FOR CONTINUITY OF CARE. PT IS STABLE.
--- NOTE | 2021-11-28 07:21 | NUR ---
RECEIVED REPORT FROM COMPUTER PROGRAMMER NURSE FOR CONTINUITY OF CARE. PT ASLEEP ALL SAFETY MEASURE IN PLACE.
--- NOTE | 2021-11-28 08:10 | NUR ---
RECEIVED REPORT FROM TIMOTHY DELCID FOR CONTINUITY OF CARE. PLAN OF CARE DISCUSSED.
[2021-11-28] MEDS: APIXABAN 2.5 MG TAB GT SCH ×2 (08:25→19:46)
[2021-11-28] MEDS: POLYETHYLENE GLYCOL 17 GM/PKT GT SCH (08:28)
[2021-11-28] MEDS: ASCORBIC ACID 500 MG TAB GT SCH (08:28)
[2021-11-28] MEDS: OXcarbazepine 150 MG TAB GT SCH ×2 (08:29→19:48)
[2021-11-28] MEDS: MULTIVITAMIN 1 TAB PO SCH (08:29)
--- NOTE | 2021-11-28 08:38 | NUR ---
GIVEN DUE MEDICATION VIA GT. GT INTACT, PATENT, IN PLACE. HEAD OF BED ELEVATED FOR ASPIRATION PRECAUTION.
[2021-11-28 08:41] LABS: ANION GAP 8.9 (8-16); CARBON DIOXIDE 35.5 mmol/L (21-32); CREATININE 0.4 mg/dL (0.6-1.3); POTASSIUM 3.4 mmol/L (3.5-5.1)
[2021-11-28] MEDS ORDERED: ZOS3.375PM IV (09:23)
[2021-11-28] MEDS ORDERED: DEXT100S62 IV (09:31)
--- NOTE | 2021-11-28 10:30 | NUR ---
PT CHANGE AND KEEP SKIN CLEAN AND DRY. ALL SAFETY MEASURE IN PLACE.
--- NOTE | 2021-11-28 12:30 | NUR ---
HEAD OF BED ELEVATED FOR ASPIRATION PRECAUTION. GT INTACT IN PLACE AND PATENT.
--- NOTE | 2021-11-28 14:00 | NUR ---
SKIN CARE DONE AND TREATMENT DONE.
--- NOTE | 2021-11-28 15:53 | NUR ---
GAVE REPORT TO NURSE LATHAM FROM [facility] FOR CONTINUITY OF CARE.
[2021-11-28 16:00] VITALS: BP 111/76
--- NOTE | 2021-11-28 18:15 | NUR ---
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
--- NOTE | 2021-11-28 19:25 | NUR ---
ENDORSE TO WIDE LOAD ESCORT NURSE FOR CONTINUITY OF CARE.
--- NOTE | 2021-11-28 19:30 | NUR ---
RECEIVED REPORT FROM RN DAYSHIFT NURSE AT BEDSIDE FOR CONTINUITY OF CARE, PT LYING IN BED HOB UP 35% HE IS AOX1 WITH 4 LITERS RUNNING VIA N/C. PT ALSO HAS G TUBE INTACT AND RUNNING VITAL AF AT 60MLS/HR. PT IS BEDBOUND AND INCONTINENT OF BOWEL AND BLADDER. PT HAS DIAPER ON HE HAS NO S/S OF PAIN OR DISTRESS NOTED. PT HAS RIGHT UPPER MIDLINE INTACT AND SALINE LOCKED AT THIS TIME. ALL ORDERED PRECAUTIONS IN PLACE.
--- NOTE | 2021-11-28 21:00 | NUR ---
PT WAS TURNED, CHANGED AND REPOSITIONED IN BED. ALL SCHEDULED MEDS GIVEN. PT UNABLE TO VERBALIZE UNDERSTANDING OF MEDICATIONS. PT LEFT AFTER MEDICATION ADMINISTRATION WITH [facility]. ALL BELONGS AND DISCHARGE PAPERS IN HAND. LAST V/S FOLLOWS: T 98.3 P 70 R 20 B/P 117/49 02 91% WITH 4 LITERS VIA N/C.
[2021-11-29] MEDS ORDERED: amLODIPine 5 MG TAB PO SCH (09:00)
== END 2021-11-28 20:50 | DRG 871 ==
LOC: MED 20:22 → MTU 11-16 05:02
PROVIDERS: ADMIT Internal Medicine Cardiovascular Disease; ATTEND Internal Medicine Cardiovascular Disease
PROC: 05HY33Z Insertion of Infusion Device into Upper Vein, Percutaneous Approach (ICD-10-PCS; principal; 2021-11-22)
PROC: B54MZZA Ultrasonography of Right Upper Extremity Veins, Guidance (ICD-10-PCS; 2021-11-22)
DX: A41.9 Sepsis, unspecified organism (principal); J96.01 Acute respiratory failure with hypoxia; J18.9 Pneumonia, unspecified organism; E43 Unspecified severe protein-calorie malnutrition; N39.0 Urinary tract infection, site not specified; E87.0 Hyperosmolality and hypernatremia; Z16.21 Resistance to vancomycin; I82.401 Acute embolism and thrombosis of unspecified deep veins of right lower extremity; E88.09 Other disorders of plasma-protein metabolism, not elsewhere classified; F02.80 Dementia in other diseases classified elsewhere, unspecified severity, without behavioral disturbance, psychotic disturbance, mood disturbance, and anxiety; F20.9 Schizophrenia, unspecified; I10 Essential (primary) hypertension; K21.9 Gastro-esophageal reflux disease without esophagitis; R13.10 Dysphagia, unspecified; Z20.822 Contact with and (suspected) exposure to COVID-19; G40.909 Epilepsy, unspecified, not intractable, without status epilepticus; E78.5 Hyperlipidemia, unspecified; G20 Parkinson's disease; E87.6 Hypokalemia; J45.909 Unspecified asthma, uncomplicated; G80.9 Cerebral palsy, unspecified; D64.9 Anemia, unspecified; D75.839 Thrombocytosis, unspecified; B95.2 Enterococcus as the cause of diseases classified elsewhere; Z79.01 Long term (current) use of anticoagulants; Z86.718 Personal history of other venous thrombosis and embolism; Z87.11 Personal history of peptic ulcer disease; Z93.1 Gastrostomy status; Z68.25 Body mass index [BMI] 25.0-25.9, adult
CPT/HCPCS: 36415; 71045; 76770; 80048; 80053; 80202; 81001; 82948; 83605; 83880; 84484; 85025; 85651; 86140; 87040; 87081; 87086; 87186; 93005; 96361; 96365; 96366; 96367; 97110; 97112; 97163-GP; 97530; 99285; J0692; J2020; J2543; J3370; J7060; Q0092; Q0162; U0003